=== PATIENT | male | born 1995 | race Caucasian/White ===

== ENCOUNTER 2021-11-16 13:37 | Inpatient (IN) | payer OTHER ==
[2021-11-16 14:40] VITALS: BMI 25.7
[2021-11-16] MEDS ORDERED: LOPERAMIDE HCL 2 MG CAPSULE PO PRN (21:16)
[2021-11-16] MEDS ORDERED: NICOTINE POLACRILEX 2 MG GUM BUC PRN (21:16)
[2021-11-16] MEDS ORDERED: MAG HYDROX/AL HYDROX/SIMETH 30 ML UNIT-DOSE CUP PO PRN (21:16)
[2021-11-16] MEDS ORDERED: MAGNESIUM HYDROX 2400MG/30ML ORAL SUSPENSION 30 ML CUP PO PRN (21:16)
[2021-11-16] MEDS ORDERED: diazePAM 5 MG TABLET PO ONE (21:16)
[2021-11-16] MEDS ORDERED: ONDANSETRON *ODT* 4 MG TABLET SL PRN (21:16)
[2021-11-16] MEDS ORDERED: BISMUTH SUBSALICYLATE 524 MG/30 ML PO PRN (21:16)
[2021-11-16] MEDS ORDERED: MAGNESIUM CITRATE 300 ML BOTTLE PO PRN (21:16)
[2021-11-16] MEDS ORDERED: diazePAM 5 MG TABLET PO PRN (21:16)
[2021-11-16] MEDS ORDERED: MENTHOL/PHENOL 1 EACH UD MM PRN (21:16)
[2021-11-16] MEDS ORDERED: ACETAMINOPHEN 325 MG TABLET (FP) PO PRN ×2 (21:16)
[2021-11-16] MEDS ORDERED: IBUPROFEN 400 MG TABLET (FP) PO PRN (21:16)
[2021-11-16] MEDS: hydrOXYzine PAMOATE 25 MG CAPSULE (FP) PO PRN (23:19)
[2021-11-16] MEDS: THIAMINE HCL 100 MG TABLET (FP) PO SCH (23:19)
[2021-11-16] MEDS: MELATONIN 5 MG TABLETS PO SCH (23:19)
[2021-11-16] MEDS: METHOCARBAMOL 500 MG TABLET PO PRN (23:24)
[2021-11-16] MEDS: diazePAM 5 MG TABLET PO SCH (23:44)
[2021-11-17] MEDS: diazePAM 5 MG TABLET PO SCH ×4 (05:47→22:19)
[2021-11-17] MEDS: PRENATAL VITAMINS W/ FOLIC ACID TABLET (FP) PO SCH (10:39)
[2021-11-17] MEDS ORDERED: FLU VACC QS2021-22(6MOS UP)/PF 60 MCG/0.5 ML SYRINGE IM ONE (13:00)
[2021-11-17 16:40] LABS: ALBUMIN 3.4 g/dl (3.4-5.0)
[2021-11-17 16:43] LABS: HEMATOCRIT 39.3 % (35.4-49); HEMOGLOBIN 13.5 GM/dL (11.7-16.9); MCH 29.6 pg (25.7-33.7); MCHC 34.4 g/dl (32.0-35.9); MEAN CELL VOLUME 86.1 fl (80-96); PLATELET COUNT 166 10^3/uL (134-434); RBC 4.56 M/mm3 (4.00-5.60); RDW 15.4 % (11.9-15.9); WHITE BLOOD COUNT 3.8 K/mm3 (4.0-10.0)
[2021-11-17 16:43] LABS: CREATININE 0.7 mg/dL (0.55-1.3)
[2021-11-17 16:45] LABS: BILIRUBIN,TOTAL 0.7 mg/dL (0.2-1); TOT PROT 6.4 g/dl (6.4-8.2)
[2021-11-17] MEDS: NICOTINE 10 MG CARTRIDGE (INHALER) IH PRN (18:04)
[2021-11-17] MEDS: MELATONIN 5 MG TABLETS PO SCH (22:19)
[2021-11-17] MEDS: THIAMINE HCL 100 MG TABLET (FP) PO SCH (22:19)
[2021-11-17] MEDS: METHOCARBAMOL 500 MG TABLET PO PRN (22:20)
[2021-11-17] MEDS: hydrOXYzine PAMOATE 25 MG CAPSULE (FP) PO PRN (22:20)
[2021-11-18] MEDS: diazePAM 5 MG TABLET PO SCH ×3 (06:06→14:13)
[2021-11-18 08:10] LABS: SARS-CoV-2 NAA Not Detected (Not Detected)
[2021-11-18] MEDS: PRENATAL VITAMINS W/ FOLIC ACID TABLET (FP) PO SCH (10:54)
[2021-11-18] MEDS: NICOTINE 10 MG CARTRIDGE (INHALER) IH PRN (12:09)
[2021-11-18 17:25] VITALS: BP 110/79; PULSE 93; TEMP 98.7
[2021-11-18] MEDS ORDERED: diazePAM 5 MG TABLET PO SCH (22:00)
[2021-11-19] MEDS ORDERED: diazePAM 5 MG TABLET PO SCH ×2 (06:00)
[2021-11-20] MEDS ORDERED: diazePAM 5 MG TABLET PO ONE ×2 (06:00)
== END 2021-11-18 19:35 | disposition left against medical advice (07) | DRG 770 ==
LOC: YASAS 13:37 → Y6N 20:48
PROVIDERS: ADMIT Allergy & Immunology; ATTEND Allergy & Immunology
PROC: HZ2ZZZZ Detoxification Services for Substance Abuse Treatment (ICD-10-PCS; principal; 2021-11-16)
DX: F10.230 Alcohol dependence with withdrawal, uncomplicated (principal); F11.10 Opioid abuse, uncomplicated; F13.10 Sedative, hypnotic or anxiolytic abuse, uncomplicated; F17.210 Nicotine dependence, cigarettes, uncomplicated; Z87.09 Personal history of other diseases of the respiratory system
CPT/HCPCS: 36415; 80053; 85027; 86780; 87811; 90686; 93005; 93010; C9803-CS; G0008; U0003; U0005